=== PATIENT | female | born 2000 | race Caucasian/White ===

== ENCOUNTER 2022-03-29 02:34 | Emergency (ER) | payer OTHER ==
[2022-03-29] MEDS ORDERED: Ketorolac Tromethamine 30 MG/ML VIAL ONE (03:12)
== END 2022-03-29 03:39 | disposition home or self-care (01) ==
LOC: ERS 02:34
DX: S29.9XXA Unspecified injury of thorax, initial encounter (principal); W55.12XA Struck by horse, initial encounter
CPT/HCPCS: 71045; 93005; 96372; J1885